=== PATIENT | female | born 1965 | race Caucasian/White ===

== ENCOUNTER → 2021-02-17 15:31 | Outpatient (CLI) | payer OTHER, SELFPAY ==
--- NOTE | ~2021-02-17 | XR_ITS ---
EXAMINATION: XR foot RT 2V EXAM DATE: 02/17/2021 16:21 INDICATION: Pain in unspecified joint, Myalgia, unspecified site, malaise. TECHNIQUE: Frontal and lateral projections of the right foot. There is no prior study for compariso n. FINDINGS: There is mild right 1st metatarsophalangeal joint primary osteoarthritis. Small inferior c alcaneal spur. No periosteal reaction or band of sclerosis to suggest subacute stress fracture. There are no acute fractures or dislocations identified. There is no subcutaneous gas. The soft tissue i s unremarkable. There are no radiopaque foreign bodies. IMPRESSION: Mild right 1st MTP osteoarthritis. Reviewed, dictated and finalized at location A. URY WASHER
--- NOTE | ~2021-02-17 | XR_ITS ---
EXAMINATION: XR sacroiliac joints min 3V EXAM DATE: 02/17/2021 16:20 INDICATION: Pain in unspecified joint, Myalgia, unspecified site, malaise. TECHNIQUE: Sacroiliac joint frontal, bilateral oblique projections. Correlation is made to pelvic x- ray 2016. FINDINGS: Mild symmetric bilateral hip primary osteoarthritis. There are no bony erosions identified . Sacrum, sacroiliac joints, sacral arcuate lines are intact. IUD centrally located within the pe lvis. Calcifications in the pelvis are believed to be phleboliths. At least moderate disc disease and facet arthropathy L5-S1. IMPRESSION: Mild bilateral sacroiliac osteoarthritis. Reviewed, dictated and finalized at location A. LATORY COORDINATOR
--- NOTE | ~2021-02-17 | XR_ITS ---
EXAMINATION: XR foot LT 2V EXAM DATE: 02/17/2021 16:21 INDICATION: Pain in unspecified joint, Myalgia, unspecified site, malaise. TECHNIQUE: Frontal and lateral projections of the left foot. There is no prior study for comparison . FINDINGS: Small left calcaneal inferior spur. Mild left 1st metatarsophalangeal joint primary osteoa rthritis, symmetric to the contralateral side. There are no acute fractures or dislocations identifie d. There is no subcutaneous gas. The soft tissue is unremarkable. There are no radiopaque foreign bodies. There are no bony erosions identified. No periosteal reaction or band of sclerosis to sug gest subacute stress fracture. IMPRESSION: Mild left 1st MTP osteoarthritis. Reviewed, dictated and finalized at location A. RETTE MACHINES MECHANIC
--- NOTE | ~2021-02-17 | XR_ITS ---
EXAMINATION: XR ankle RT 2V EXAM DATE: 02/17/2021 16:21 INDICATION: Pain in unspecified joint, Myalgia, unspecified site, malaise. TECHNIQUE: Frontal and lateral projections of the right ankle. There is no prior study for comparis on. FINDINGS: Small right calcaneal inferior spur. There are no acute fractures or dislocations identifi ed. There is no subcutaneous gas. The soft tissue is unremarkable. There are no radiopaque foreig n bodies. The ankle mortise appears intact. IMPRESSION: Small right calcaneal spur. Reviewed, dictated and finalized at location A. E COMMERCE SOLUTION ARCHITECT IMPRESSION: Small right calcaneal spur.
--- NOTE | ~2021-02-17 | XR_ITS ---
EXAMINATION: XR wrist LT 2V, XR hand LT 2V EXAM DATE: 02/17/2021 16:21 INDICATION: Pain in unspecified joint, Myalgia, unspecified site, malaise. TECHNIQUE: Frontal and lateral projections of the left wrist. Frontal and lateral projections left h and.. There is no prior study for comparison. FINDINGS: There is mild polyarticular distal interphalangeal primary osteoarthritis. There are no acu te left hand, wrist fractures or dislocations identified. There is no subcutaneous gas. The soft ti ssue is unremarkable. There are no radiopaque foreign bodies. IMPRESSION: Mild left hand polyarticular DIP osteoarthritis. Reviewed, dictated and finalized at location A. AND DAM REPAIRER IMPRESSION: Mild left hand polyarticular DIP osteoarthritis.
--- NOTE | ~2021-02-17 | XR_ITS ---
EXAMINATION: XR hand RT 2V, XR wrist RT 2V EXAM DATE: 02/17/2021 16:21 INDICATION: Pain in unspecified joint, Myalgia, unspecified site, malaise . TECHNIQUE: Frontal and lateral projections of the right hand. Frontal and lateral projections right wrist. There is no prior study for comparison. FINDINGS: There are no acute right hand, wrist fractures or dislocations identified. Scapholunate kamryn nt space maintained. There is no subcutaneous gas. The soft tissue is unremarkable. There are no r adiopaque foreign bodies. Mild right 2nd DIP primary osteoarthritis. IMPRESSION: Mild 2nd DIP osteoarthritis. Reviewed, dictated and finalized at location A. S REPRESENTATIVE FACILITY SERVICES IMPRESSION: Mild 2nd DIP osteoarthritis.
--- NOTE | ~2021-02-17 | XR_ITS ---
EXAMINATION: XR ankle LT 2V EXAM DATE: 02/17/2021 16:21 INDICATION: Pain in unspecified joint, Myalgia, unspecified site, malaise. TECHNIQUE: Frontal and lateral projections of the left ankle. There is no prior study for compariso n. FINDINGS: Small left calcaneal inferior spur. The ankle mortise appears intact. There are no acute f ractures or dislocations identified. There is no subcutaneous gas. The soft tissue is unremarkable. There are no radiopaque foreign bodies. IMPRESSION: Small left calcaneal inferior spur. Reviewed, dictated and finalized at location A. OR TELECOMMUNICATIONS TECHNICIAN
== END ==
DX: M25.50 Pain in unspecified joint (principal); M79.10 Myalgia, unspecified site; R53.81 Other malaise; M77.32 Calcaneal spur, left foot; M77.31 Calcaneal spur, right foot; M19.072 Primary osteoarthritis, left ankle and foot; M19.071 Primary osteoarthritis, right ankle and foot; M19.042 Primary osteoarthritis, left hand; M19.041 Primary osteoarthritis, right hand; M53.3 Sacrococcygeal disorders, not elsewhere classified
CPT/HCPCS: 72202; 73100; 73120; 73600; 73620

== ENCOUNTER → 2021-02-23 17:02 | Outpatient (CLI) | payer OTHER, SELFPAY ==
--- NOTE | ~2021-02-23 | XR_ITS ---
EXAMINATION: XR chest 2V DATE: 02/23/2021 17:40 INDICATION: Rheumatoid arthritis involving multiple sites TECHNIQUE: PA and lateral views of the chest were obtained. COMPARISON: None FINDINGS: The lungs are clear with no focal airspace opacities, pulmonary edema, pleural effusion or pneumothor ax. The cardiomediastinal silhouette is normal. Mild to moderate thoracic spondylosis. IMPRESSION: 1. No acute cardiopulmonary disease. Reviewed, dictated and finalized at location A. AGING MANAGER
== END ==
PROVIDERS: Visit Provider Nurse Practitioner Family
DX: M05.79 Rheumatoid arthritis with rheumatoid factor of multiple sites without organ or systems involvement (principal)
CPT/HCPCS: 71046

== ENCOUNTER → 2022-01-31 16:43 | Outpatient (CLI) | payer OTHER, SELFPAY ==
--- NOTE | ~2022-01-31 | XR_ITS ---
XR hip BI wo pelvis DATE: 01/31/2022 17:06 INDICATION: Hip pain TECHNIQUE: AP and lateral views of each hip COMPARISON: None FINDINGS: An IUD is noted overlying the central pelvic area. No fracture or dislocation, avascular necrosis or bone destruction of either hip is detected. Hip kamryn nt spaces are symmetric and relatively preserved. Normal alignment at the pubic symphysis and sacroiliac joints. IMPRESSION: No significant abnormality Reviewed, dictated and finalized at location A. IMPRESSION: No significant abnormality
== END ==
PROVIDERS: PCP Nurse Practitioner Family; Visit Provider Nurse Practitioner Family
DX: M25.559 Pain in unspecified hip (principal)
CPT/HCPCS: 73521

== ENCOUNTER 2022-11-04 13:40 | Emergency (ER) | payer OTHER, SELFPAY ==
[2022-11-04 14:01] VITALS: BP 155/93; PULSE 98; RESP 16; TEMP 36.8; O2SAT 99
--- NOTE | 2022-11-04 14:55 | ED.GENADULT ---
HPI - General Adult General Chief complaint: Skin/Abscess/Foreign Body Stated complaint: rash on stomach Source: patient Mode of arrival: ambulatory Limitations: no limitations History of Present Illness HPI narrative: Patient presents for evaluation of painful skin lesions to the abdomen and back. She indicates that her pain started 2 days ago itchy noted blistered lesions to the abdomen and back in the last day. No fever, chills, nausea, vomiting. No new lotions, soaps, detergents, topical products. No one else has similar symptoms. She had chickenpox in childhood. She indicates she has had an increase in stress as of late. She is not diabetic. She has been taking ibuprofen for symptoms. Related Data Allergies Allergy/AdvReac Type Severity Reaction Status Date / Time No Known Allergies Allergy Verified 11/04/22 14:18 Review of Systems Review of Systems: CONSTITUTIONAL: Denies fever, chills, or sweats. EYES: Denies visual changes, redness, or discharge. ENT: Denies rhinorrhea, congestion, sore throat, or otalgia. CARDIOVASCULAR: Denies chest pain, palpitations, or edema. RESPIRATORY: Denies cough or dyspnea. GASTROINTESTINAL: Denies abdominal pain, nausea, vomiting, or diarrhea. GENITOURINARY: Denies dysuria or hematuria. SKIN: Reports painful skin lesions to the abdomen and right side of her back MUSCULOSKELETAL: Denies back pain, joint pain, or myalgia. NEUROLOGIC: Denies headache, numbness, dizziness, or weakness. PSYCHIATRIC: Denies anxiety or depression. [facility] Past Medical History Medical History Herpes zoster Hypertension Surgical History Surgical History (Updated 11/04/22 @ 14:57 by SANDRA Madden, ) No pertinent past surgical history Family History Family History Mother Family history of migraine headaches Hypertension Family history of restless legs syndrome Sibling Family history of migraine headaches Father Malignant neoplasm of prostate Family history of malignant neoplasm Social History Social History Smoking status: Never smoker Second hand tobacco smoke exposure: Yes Alcohol intake: former Substance use: never Gender identity (if verbalized by the patient): Female Spiritual care concerns: No Exam Narrative: GENERAL: Well-appearing, well-nourished, and in no acute distress. HEAD: Normocephalic, atraumatic. EYES: PERRLA and EOMI. ENT: Nares clear, no rhinorrhea or epistaxis. Mucous membranes moist. Oropharynx without tonsillar hypertrophy exudate or other lesions. Bilateral TMs pearly conley nonbulging NECK: Supple. No adenopathy or masses. No carotid bruits or JVD CHEST: Clear to auscultation. No respiratory distress. No wheezes rales or rhonchi HEART: Regular rate and rhythm. No murmur heard. Normal peripheral pulses. ABDOMEN: Soft, nontender, nondistended, normal active bowel sounds. EXTREMITIES: Normal range of motion. No edema. SKIN: there are vesicular skin eruptions to the abdomen, just right of the midline. There also vesicular skin eruptions noted to the right lower back NEURO: No focal deficits. Alert and oriented x3. PSYCH: Normal mood and affect. Course Course Emergency Course: This is a 57-year-old female who presented for evaluation of a painful rash. This is a classic presentation of herpes zoster. Will discharge with Valtrex and hydrocodone. Increase hydration. Cover lesions and advised on viral shedding. Follow-up with primary provider go to the emergency department for worsening symptoms. Patient in agreement with plan of care Level of Care: Express Care Visit Vital Signs Vital signs: Vital Signs Temperature 36.8 C 11/04/22 14:01 Pulse Rate 98 11/04/22 14:01 Respiratory Rate 16 11/04/22 14:01 Blood Pressure 155/93 H 11/04
== END 2022-11-04 15:06 | disposition home or self-care (01) ==
PROVIDERS: Emergency Provider Nurse Practitioner; PCP Internal Medicine
DX: B02.9 Zoster without complications (principal); I10 Essential (primary) hypertension
CPT/HCPCS: 99213; G0463

== ENCOUNTER 2023-09-19 17:19 | Emergency (ER) | payer OTHER, SELFPAY ==
[2023-09-19 17:29] VITALS: BP 152/100; PULSE 99; RESP 16; TEMP 37.1; O2SAT 97
--- NOTE | 2023-09-19 18:04 | ED.GENADULT ---
HPI - General Adult General Chief complaint: Neck Pain/Injury Stated complaint: Neck and Shoulder Pain Time Seen by Provider: 09/19/23 17:51 Source: patient and RN notes reviewed Mode of arrival: ambulatory Limitations: no limitations History of Present Illness HPI narrative: Patient presents today complaining of a one-week history of right sided neck and right shoulder pain. Pain started after patient lifted a very heavy car seat, then the next day, was using a weed eater at her home. Denies numbness or tingling in the arm or hand. Currently rates her pain 7/10. She has tried Tylenol, Simon-Young, ice, heat, and a 10s unit without much relief. She also takes diclofenac. History of rheumatoid arthritis. Related Data Allergies Allergy/AdvReac Type Severity Reaction Status Date / Time No Known Allergies Allergy Verified 09/19/23 17:38 Review of Systems Review of Systems: CONSTITUTIONAL: Denies body aches, fever, chills, or sweats. EYES: Denies visual changes, redness, or discharge. ENT: Denies rhinorrhea, congestion, sore throat, or otalgia. CARDIOVASCULAR: Denies chest pain, palpitations, or edema. RESPIRATORY: Denies cough or dyspnea. GASTROINTESTINAL: Denies abdominal pain, nausea, vomiting, or diarrhea. GENITOURINARY: Denies dysuria or hematuria. SKIN: Denies rash, itching, or wounds. MUSCULOSKELETAL: + right neck and shoulder pain NEUROLOGIC: Denies headache, numbness, tingling, or weakness. PSYCH: Denies depression or anxiety. [facility] Past Medical History Medical History Herpes zoster Hypertension Surgical History Surgical History No pertinent past surgical history Family History Family History Mother Family history of migraine headaches Hypertension Family history of restless legs syndrome Sibling Family history of migraine headaches Father Malignant neoplasm of prostate Family history of malignant neoplasm Social History Social History Smoking status: Never smoker Second hand tobacco smoke exposure: Yes Alcohol intake: former Substance use: never Gender identity (if verbalized by the patient): Female Spiritual care concerns: No Comments At time of signature, I have reviewed and agree with nursing past medical, surgical, social and family history unless otherwise noted. Please see nursing chart for further information. There is no relevant family history pertinent to the presenting complaint Exam Narrative: GENERAL: Well-appearing, well-nourished, and in no acute distress. HEAD: Normocephalic, atraumatic. EYES: EOMI. No redness or drainage. Conjunctivae normal. ENT: Mucous membranes pink and moist. NECK: Right cervical paraspinal muscle tenderness that extends laterally to the superior trapezius area. Pain to this area increases with movement of the neck, but not with movement of the shoulder. Distal sensation intact. Capillary refill normal. Radial pulse normal. Bilateral hand marketing operations coordinator equal and strong CHEST: No respiratory distress. MUSCULOSKELETAL: No bony tenderness of the spine. EXTREMITIES: Normal range of motion. No edema. SKIN: Warm, dry, no rash. Capillary refill normal. Normal skin turgor. NEURO: No focal deficits. Alert and oriented x3. Gait steady. PSYCH: Normal affect. No signs of depression or anxiety. Course Course Level of Care: Express Care Visit Vital Signs Vital signs: Vital Signs Temperature 98.8 F 09/19/23 17:29 Pulse Rate 99 09/19/23 17:29 Respiratory Rate 16 09/19/23 17:29 Blood Pressure 152/100 H 09/19/23 17:29 Pulse Oximetry 97 09/19/23 17:29 Oxygen Delivery Room Air 09/19/23 17:29 Temperature 98.8 F 09/19/23 17:29 Pulse Rate 99 09/19/23 17:29 Respiratory Rate
== END 2023-09-19 18:17 | disposition home or self-care (01) ==
PROVIDERS: Emergency Provider Nurse Practitioner; PCP Nurse Practitioner Family
DX: S46.811A Strain of other muscles, fascia and tendons at shoulder and upper arm level, right arm, initial encounter (principal); X50.0XXA Overexertion from strenuous movement or load, initial encounter; I10 Essential (primary) hypertension
CPT/HCPCS: 99213; G0463